=== PATIENT | female | born 1965 | race African-American/Black ===

== ENCOUNTER 2018-03-05 18:26 | Inpatient (IN) | payer OTHER ==
[~2018-03-05] VITALS: Ht 165.1 cm; Wt 103.0 kg
[2018-03-05 19:00] LABS: ABSOLUTE BASOPHIL COUNT 0 /CUMM (0.0-0.2); ABSOLUTE EOSINOPHIL COUNT 0.1 /CUMM (0.0-0.7); ABSOLUTE GRANULOCYTE CT 8.5 /CUMM (1.4-6.5); ABSOLUTE LYMPH COUNT 2.6 /CUMM (1.2-3.4); ABSOLUTE MONOCYTE COUNT 0.9 /CUMM (0.10-0.60); BASOPHIL % 0.3 % (0.0-2.0); GRANULOCYTE % 69.5 % (42.2-75.2); HEMATOCRIT 45.3 % (37-47); MEAN CORPUSCULAR HGB CONC 33.2 G/DL (33.0-37.0); MEAN CORPUSCULAR VOLUME 90.4 FL (81.0-99.0); MEAN PLATELET VOLUME 8.7 FL (7.4-10.4); PLATELET COUNT 417 /CUMM (130-400); RBC DISTRIBUTION WIDTH 13.1 % (11.5-14.5); RED BLOOD CELL CT 5.02 /CUMM (4.20-5.40); WHITE BLOOD CELL COUNT 12.2 /CUMM (4.8-10.8)
--- NOTE | 2018-03-05 19:38 | ED GENERAL ADULT ---
History of Present Illness General Chief Complaint: General Adult Stated Complaint: SIB DR FOR PER PT SUGAR LEVELS AROUND 700 Source: patient Exam Limitations: no limitations Vital Signs & Intake/Output Vital Signs & Intake/Output Vital Signs Date Time Temp Pulse Resp B/P B/P Pulse O2 O2 Flow FiO2 Mean Ox Delivery Rate 03/05 2204 98.8 80 18 106/69 99 Room Air 03/05 2059 99.0 80 18 126/79 99 Room Air 03/05 1853 99.2 108 16 134/91 97 Allergies Coded Allergies: No Known Allergies (03/05/18) Triage Note: PT CAME HOME FROM WORK AND DR. RIOJAS CALLED HER TO TELL HER THAT HER BLOODWORK CAME BACK AND THAT HER BS WAS OVER 700 AND SHE NEEDED TO COME TO THE ED. PT STATES SHE FEELS FINE. PT STATES SHE WAS NEVER DIOGNOSED DIABETIC SO THIS IS NEW FOR HER. PT DID NOTICE THAT SHE WAS VOIDING ALL THE TIME BUT THAT WAS IT. PT STATES SHE IS ALWAYS THIRSTY AND SHE CRAVES SWEETS BUT DOES NOT EAT THEM. Triage Nurses Notes Reviewed? yes Onset: Abrupt Duration: day(s): Timing: recent history HPI: 03/05/18 10 PM 52-year-old female presents to the emergency department for polyuria and polydipsia. She saw her primary care doctor who obtain some outpatient blood work and found her glucose to be greater than 700. She presented to the emergency department for further care. She denies any chest pain or shortness of breath. Past History Travel History Traveled to [place] past 21 day No Medical History Any Pertinent Medical History? see below for history Cardiovascular: hypertension Surgical History Surgical History: hysterectomy Psychosocial History What is your primary language Croatian Tobacco Use: Never used ETOH Use: occasional use Illicit Drug Use: denies illicit drug use Family History Hx Contributory? No Review of Systems Review of Systems Constitutional: Denies: fever. EENTM: Denies: visual changes. Respiratory: Denies: short of breath. Cardiovascular: Denies: chest pain. GI: Denies: abdominal pain. Genitourinary: Reports: see HPI. Musculoskeletal: Reports: muscle pain. Skin: Denies: rash. Neurological/Psychological: Reports: see HPI. Hematologic/Endocrine: Reports: polyuria, polydipsia. Immunologic/Allergic: Reports: no symptoms. Physical Exam Physical Exam General Appearance: well developed/nourished, alert, awake, anxious Head: atraumatic, normal appearance Eyes: Bilateral: normal appearance, PERRL, EOMI. Ears, Nose, Throat: normal pharynx, normal ENT inspection, hearing grossly normal Neck: normal inspection, supple Respiratory: normal breath sounds, chest non-tender, no respiratory distress Cardiovascular: regular rate/rhythm Peripheral Pulses: 4+ radial (R), 4+ radial (L) Gastrointestinal: non-tender Back: normal range of motion Extremities: normal range of motion Neurologic/Psych: no motor/sensory deficits, awake, alert, oriented x 3 Skin: intact, normal color Core Measures ACS in differential dx? No CVA/TIA Diagnosis: No Sepsis Present: No Sepsis Focused Exam Completed? No Progress Differential Diagnoses I considered the following diagnoses in my evaluation of the patient: [Diabetic ketoacidosis, hyperosmolar nonketotic coma] Plan of Care: Orders Procedure Date/time Status Consistent Carbohydrate 1 03/06 B Active LACTIC ACID 03/05 2144 Complete Patient Data 03/05 2110 Active BASIC METABOLIC PANEL 03/05 2100 Complete ED Holding Orders 03/05 2013 Active Admit to inpatient 03/05 2013 Active EKG 03/05 2013 Active Intake & Output 03/05 1956 Active FingerStick- Glucose 03/05 1844 Active LACTIC ACID 03/05 1844 Complete MIXED VENOUS BLOOD GAS (GEN) 03/05 1833 Active URINALYSIS 03/05 1833 Complete TROPONIN LEVEL 03/05 1833 Complete SERUM OSMOLALITY 03/05 1833 Complete COMPREHENSIVE METABOLIC PANEL 03/05 1833 Complete CBC WITHOUT DIFFERENTIAL 03/05 183 Complete ACETONE 03/05 183 Complete EKG 03/05 1833 Active Laboratory Tests 03/05/182131: Lactic Acid 1.6 03/05/182131: Anion Gap 13, Estimated GFR > 60, BUN/Creatinine Ratio 28.3 H, Glucose 404 H, Calcium 9.7 03/05/182053: Urine Color YEL, Urine Clarity CLEAR, Urine pH 6.0, Ur Specific [place] 1.020, Urine Protein NEG, Urine Ketones 40 H, Urine Nitrite NEG, Urine Bilirubin NEG, Urine Urobilinogen 0.2, Ur Leukocyte Esterase NEG, Ur Microscopic EXAM NOT REQUIRED, Urine Hemoglobin NEG, Urine Glucose >=1000 H 03/05/18 1850: Lactic Acid 1.8 03/05/18 185: Anion Gap 17 H, Estimated GFR > 60, BUN/Creatinine Ratio 25.7 H, Glucose 620 * H, Serum Osmolality 310 H, Calcium 11.3 H, Total Bilirubin 0.7, AST 21, ALT 43 , Alkaline Phosphatase 187 H, Troponin I < 0.01, Total Protein 7.9, Albumin 4.4 , Globulin 3.5, Albumin/Globulin Ratio 1.3, CBC w Diff NO MAN DIFF REQ, RBC 5.02 , MCV 90.4, MCH 30.0, MCHC 33.2, RDW 13.1, MPV 8.7, Gran % 69.5, Lymphocytes % 21.4, Monocytes % 7.8, Eosinophils % 1.0, Basophils % 0.3, Absolute Granulocytes 8.5 H, Absolute Lymphocytes 2.6, Absolute Monocytes 0.9 H, Absolute Eosinophils 0.1, Absolute Basophils 0, Acetone Level POSITIVE AT 1:2 DIL Initial ED EKG: NSR Departure Departure Disposition: STILL A PATIENT Condition: Stable Clinical Impression Primary Impression: DKA (diabetic ketoacidoses) Referrals: Clayton Roe MD (PCP/Family) Departure Forms: Customer Survey General Discharge Information Admission Note Spoke With: Ernestina Christianson MD Documentation of Exam: Documentation of any treatments & extenuating circumstances including Concerns Regarding Discharge (functional status, medication knowledge or non-compliance, living conditions, etc.) that warrant an admission rather than observation: [The patient needs admission for IV fluids, IV insulin, endocrinology consultation I discussed the patient's care with Dr. Canales who agrees with the plan of care] Critical Care Note Critical Care Note Critical Care Time: 30-74 min
[2018-03-05] MEDS ORDERED: BENICAR5 M1 PO (22:12)
[2018-03-05] MEDS ORDERED: ASPIRIN81 M4 PO (22:13)
[2018-03-05] MEDS ORDERED: VITAMIN B122500 MC2 PO (22:13)
[2018-03-05] MEDS ORDERED: VITAMIN D1000 UNIT PO (22:14)
[2018-03-05 22:50] VITALS: BP 130/80
--- NOTE | 2018-03-05 23:10 | History & Physical ---
Loni Mayfield 03/05/18 2310: General Information and HPI History of Present Illness: Ms. Lawton is a 52 yo f with a PMH significant for hypertension and borderline DM SIB PCP-Dr. Roe for a glucose lab results of 700. Patient reports yesterday she had her routine labs checked with an upcoming appointment with her PCP 04/10/18. For the past 2 weeks she has noticed she has had increased thirst, urinary frequency and cravings for sugar and soda. She normally does not drink soda and has had a poor appetite with a 18 pounds weight loss in 1 week. She has also noticed bilateral lower extremity intermittent cramps. She reports she drinks "alot" of "sugar-free"alcohol on her days off. Her last drink was Sunday. She denies blurry vision, nausea, vomiting, numbness, paresthesias or bowel symptoms. Allergies/Medications Allergies: Coded Allergies: No Known Allergies (03/05/18) Past History Travel History Traveled to [place] past 21 day No Medical History Cardiovascular: hypertension Surgical History Surgical History: hysterectomy Past Family/Social History Psychosocial History ETOH Use: occasional use Illicit Drug Use: denies illicit drug use Review of Systems Review of Systems Constitutional: Reports: see HPI. Exam & Diagnostic Data Last 24 Hrs of Vital Signs/I&O Vital Signs Date Time Temp Pulse Resp B/P B/P Pulse O2 O2 Flow FiO2 Mean Ox Delivery Rate 03/05 2250 98.0 91 20 130/80 97 Room Air 03/05 2204 98.8 80 18 106/69 99 Room Air 03/05 2059 99.0 80 18 126/79 99 Room Air 03/05 1853 99.2 108 16 134/91 97 Intake & Output 03/06 0800 03/06 0000 03/05 1600 Intake Total 1110 Output Total Balance 1110 Intake, IV 1110 Intake, Oral 0 Patient 228 lb Weight Weight Bed scale Measurement Method Physical Exam General Appearance Alert, Oriented X3, Cooperative, No Acute Distress HEENT Atraumatic, PERRLA, EOMI, Mucous Membr. moist/pink Neck Supple, No JVD Cardiovascular Regular Rate, Normal S1, Normal S2 Lungs Clear to Auscultation, Normal Air Movement Abdomen Normal Bowel Sounds, Soft, No Tenderness Extremities No Edema Last 24 Hrs of Labs/[place]: Laboratory Tests 03/05/182131: Lactic Acid 1.6 03/05/182131: Anion Gap 13, Estimated GFR > 60, BUN/Creatinine Ratio 28.3 H, Glucose 404 H, Calcium 9.7 03/05/182053: Urine Color YEL, Urine Clarity CLEAR, Urine pH 6.0, Ur Specific [place] 1.020, Urine Protein NEG, Urine Ketones 40 H, Urine Nitrite NEG, Urine Bilirubin NEG, Urine Urobilinogen 0.2, Ur Leukocyte Esterase NEG, Ur Microscopic EXAM NOT REQUIRED, Urine Hemoglobin NEG, Urine Glucose >=1000 H 03/05/181849: Lactic Acid 1.8 03/05/181849: Anion Gap 17 H, Estimated GFR > 60, BUN/Creatinine Ratio 25.7 H, Glucose 620 * H, Serum Osmolality 310 H, Calcium 11.3 H, Total Bilirubin 0.7, AST 21, ALT 43 , Alkaline Phosphatase 187 H, Troponin I < 0.01, Total Protein 7.9, Albumin 4.4 , Globulin 3.5, Albumin/Globulin Ratio 1.3, CBC w Diff NO MAN DIFF REQ, RBC 5.02 , MCV 90.4, MCH 30.0, MCHC 33.2, RDW 13.1, MPV 8.7, Gran % 69.5, Lymphocytes % 21.4, Monocytes % 7.8, Eosinophils % 1.0, Basophils % 0.3, Absolute Granulocytes 8.5 H, Absolute Lymphocytes 2.6, Absolute Monocytes 0.9 H, Absolute Eosinophils 0.1, Absolute Basophils 0, Acetone Level POSITIVE AT 1:2 DIL Diagnostic Data Other Results US DUPLEX LOWER EXTREMITY ARTERY/GRAFT LIMITED, RIGHT IMPRESSION: Monophasic waveforms in the distal popliteal artery, posterior tibial artery, anterior tibial artery, and dorsalis pedis in the right lower extremity consistent with peripheral arterial disease. Findings similar to previous study. XR FOOT, RIGHT IMPRESSION: Suggestion of a focus of soft tissue gas along the distal lateral aspect of the foot, with possible punctate foreign body densities in the plantar soft tissues. No acute osseous findings identified. 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 US TRIPLEX LOWER EXTREMITY, RIGHT IMPRESSION: Normal triplex scan without evidence of deep venous thrombosis involving the lower extremity. Assessment/Plan Assessment: Ms. Lawton is a 52 yo f with a PMH significant for hypertension and borderline DM SIB PCP-Dr. Roe for a glucose lab results of 700. On admission her glucose was 620 with an anion gap of 17 that quickly resolved and was given 5 units insulin, IVF, 10 meQ potassium Problem list: Newly diagnosed DM with hyperglycemia Hyponatremia most likely secondary to hyperglycemia Plan: Admit to general med for further evaluation and management NS IVF Accu-Cheks and NovoLog sliding scale Levemir 15 units twice a day Hemoglobin A1c TSH/T4 Endo consult Diet: Diabetic DVT ppx: Enoxaparin Code: Full As Ranked By This Provider Problem List: 1. Hyperglycemia Core Measures/Misc (08/12) Acute Coronary Syndrome ACS Diagnosis: No Congestive Heart Failure Congestive Heart Failure Diagnosis No Cerebrovascular Accident CVA/TIA Diagnosis: No VTE (View Protocol) VTE Risk Factors Age>40 No Mechanical VTE Prophylaxis d/t N/A MechProphylax Ordered No VTE Pharm Prophylaxis d/t NA PharmProphylax ordered Sepsis (View protocol) Sepsis Present: No DrewjoselynKartik 03/06/18 0505: General Information and HPI Allergies/Medications Home Med list Aspirin (Aspirin*) 81 MG TAB.CHEW 81 MG PO DAILY HEART HEALTH (Reported) Cholecalciferol (Vitamin D3) (Vitamin D) 1,000 UNIT TABLET (Unknown Dose) PO DAILY SUPPLEMENT (Reported) Cyanocobalamin (Vitamin B-12) (Vitamin B12) 2,500 MCG TAB.CHEW (Unknown Dose) PO DAILY SUPPPLEMENT (Reported) Olmesartan/Hydrochlorothiazide (Benicar Hct 40-12.5 MG Tablet) 40 MG-12.5 MG TABLET 1 TAB PO DAILY htn (Reported) Resident Review Statement Resident Statement: examined this patient, discussed with internal wholesaler Other Findings: 52 year old woman with a PMH significant for hypertension was sent by her PCP- Dr. Roe for for evaluation of elevated serum glucose of 700. She endorses few weeks history of polyuria polydipsia and intermittent lower extremity cramping. She also 18 pound unintentional weight loss over. Denies fever, chills, chest pain, nausea vomiting, abdominal pain dysuria, bowel symptoms. Vitals temperature 99.0, heart rate 80, respiratory rate 18, blood pressure 126/ 79, 91% on room air. Exam as above Labs significant for mild leukocytosis, sodium 131, chloride 95, bicarbonate 26, anion gap 17 trended down to 13 potassium 3.9, glucose 620 Assessment: Hyperglycemia likely new onset diabetes mellitus Plan Admit to general medicine floor, vital per protocol Spoke to shipping weigher [employer] consultant Dr. sweeney, please patient on every 4 Accu-Cheks with recommended insulin sliding scale. Will start long-acting Levemir 15 units twice a day Home medication of Benicar will be converted losartan 100 mg daily and hydrochlorothiazide 12.5 daily Continue aspirin Follow-up proinsulin,OLIVIA and C-peptide diabetic diet dvt ppx with sc lovenox full code Ernestina Christianson 03/06/18 0544: Attending MD Review Statement Attending Statement Attending MD Statement: examined this patient, discuss w/resident/PA/GUITAR TEACHER, agreed w/resident/PA/GUITAR TEACHER, reviewed EMR data (avail), reviewed images, amended to note Attending Assessment/Plan: CC: High blood sugar PMH: Hypertension, ? Borderline diabetes Patient was suggested to go to ER by her primary care physician for elevated blood sugar. Patient had routine blood work yesterday and she got a call back from her primary care physician today stating that her blood sugar was more than 700. And she was suggested to go to ER. This was routine blood work, before this patient had blood work approximately 6 months back, at that time she was told that she is borderline diabetes but no diet changes or medications were prescribed. Last 2-3 weeks she has been noticing increased thirst and increased urination, lost 18 pounds in one week, unintentional. Denies any fever, chills, urinary burning, cough, expectoration, abdominal pain, diarrhea, otherwise complete ROS unremarkable Vitals: Tmax 99.2, pulse 108, RR 16, blood pressure 134/91, saturating 97% on room air On exam: A O 3, cooperative, obese, no acute distress, neck supple, JVD normal, no lymphadenopathy, mucosa dry, no focal neurological deficit, no dependent edema, no obvious skin rashes or inflammation CVS: S1-S2, RRR. RS: Clear to auscultate bilaterally. Abdomen: Soft, NT, ND, bowel sounds present. Assessment and plan 52-year-old female with past medical history significant for hypertension came to ER for elevated blood sugar. Her blood sugar yesterday was 700 and today and BMP was 620. She had mildly elevated anion gap of 17 But normal according to our albumin. She has acetone positive in urine. Hypercalcemic 11.3 on arrival but improved after hydration. Physical exam unremarkable. Patient appears to have newly diagnosed diabetes with hyperglycemia. Endocrine was called from ER. Patient may have borderline DKA or on the verge of DKA but repeat BMP after hydration and IV insulin showed anion gap of 12 and blood sugar of 404. Patient has leukocytosis of unclear etiology, no source of infection identified. + Newly diagnosed diabetes with hyperglycemia + Pseudohyponatremia + Leukocytosis + History of hypertension - Admit to general medicine - Continue Levemir 10 units tonight, and 15 units twice a day from tomorrow - Continue short-acting insulin as suggested by shipping weigher - Continue gentle hydration with normal saline - Accu-Cheks every 4 hours - Endocrine consult - Check BEP and CBC in a.m. - Continue her home antihypertensives - Check HbA1c, check fasting lipid panel - DVT prophylaxis
--- NOTE | 2018-03-06 05:45 | Admission Certification ---
Admission Certification Certification Statement - As attending physician, I certify that at the time of - admission, based on clinical presentation, severity of - symptoms, need for further diagnostic testing and - therapeutic interventions, and risk of adverse outcomes - without in-hospital treatment, in my clinical assessment, - this patient requires an acute hospital stay for a minimum - of two nights or longer. I have also considered psychsocial - factors such as support system, advanced age, financial - issues, cognitive issues, and failed out-patient treatments, - past re-admission history, safety of patient, and lack of - compliance as applicable. Specific rationale supporting this admission is: Newly diagnosed diabetes with significant hyperglycemia
[2018-03-06] MEDS ORDERED: BENICAR HCT 401 EACH PO (05:50)
[2018-03-06 06:51] VITALS: BP 120/86
[2018-03-06 08:44] LABS: ABSOLUTE EOSINOPHIL COUNT 0.1 /CUMM (0.0-0.7); ABSOLUTE LYMPH COUNT 3.1 /CUMM (1.2-3.4); ABSOLUTE MONOCYTE COUNT 0.7 /CUMM (0.10-0.60); MEAN PLATELET VOLUME 8.9 FL (7.4-10.4)
[2018-03-06 08:58] LABS: ABSOLUTE BASOPHIL COUNT 0.1 /CUMM (0.0-0.2); ABSOLUTE GRANULOCYTE CT 4.9 /CUMM (1.4-6.5); BASOPHIL % 0.6 % (0.0-2.0); EOSINOPHIL % 1.5 % (0-5); GRANULOCYTE % 55.4 % (42.2-75.2); MEAN CORPUSCULAR HGB 30.9 PG (27.0-31.0); MEAN CORPUSCULAR HGB CONC 34.2 G/DL (33.0-37.0); MEAN CORPUSCULAR VOLUME 90.3 FL (81.0-99.0); PLATELET COUNT 342 /CUMM (130-400); RBC DISTRIBUTION WIDTH 12.7 % (11.5-14.5); RED BLOOD CELL CT 4.28 /CUMM (4.20-5.40); WHITE BLOOD CELL COUNT 8.9 /CUMM (4.8-10.8)
[2018-03-06 09:12] LABS: HEMATOCRIT 38.6 % (37-47)
--- NOTE | 2018-03-06 09:28 | PN- Housestaff ---
Alfredo CASTANON,[facility] 03/06/18 0928: Subjective Follow-up For: HHS Subjective: No acute events overnight. Patient states she has felt better. Patient did have some nausea this afternoon which improved with Zofran. Review of Systems Constitutional: Reports: see HPI. Objective Last 24 Hrs of Vital Signs/I&O Vital Signs Date Time Temp Pulse Resp B/P B/P Pulse O2 O2 Flow FiO2 Mean Ox Delivery Rate 03/06 1420 98.4 91 18 114/70 95 Room Air 03/06 1040 74 130/60 03/06 0651 98.0 74 20 120/86 96 Room Air 03/05 2250 98.0 91 20 130/80 97 Room Air 03/05 2204 98.8 80 18 106/69 99 Room Air 03/05 2059 99.0 80 18 126/79 99 Room Air 03/05 1853 99.2 108 16 134/91 97 Intake & Output 03/06 1600 03/06 0800 03/06 0000 Intake Total 995 478 2917 Output Total Balance 969 016 2575 Intake, IV 10 1110 Intake, Oral 800 600 0 Patient 228 lb Weight Weight Bed scale Measurement Method Physical Exam General Appearance: Alert, Oriented X3, Cooperative, No Acute Distress, Obese Cardiovascular: Regular Rate, Normal S1, Normal S2 Lungs: Clear to Auscultation, Normal Air Movement Abdomen: Normal Bowel Sounds, Soft, No Tenderness Extremities: 2+ radial pulses Current Medications: Current Medications Sig/Shalini Start time Last Medication Dose Route Stop Time Status Admin Aspirin 81 MG DAILY 03/06 1000 AC 03/06 PO 1039 Enoxaparin Sodium 40 MG DAILY 03/06 1000 AC 03/06 SC 1041 Hydrochlorothiazide 12.5 MG DAILY 03/06 1000 AC 03/06 PO 1039 Insulin Aspart 0 AC & AT BEDTIME 03/06 0845 03/06 IA 1312 Insulin Aspart 0 Q4 03/06 0200 DC 03/06 SC 0618 Insulin Detemir 15 UNITS BID 03/06 1000 AC 03/06 SC 1041 Insulin Detemir 10 UNITS BID 03/05 2325 DC 03/05 IA 03/07 0100 2340 Insulin Human Regular 5 UNITS ONCE ONE 03/05 2015 DC 03/05 IV 03/05 Losartan Potassium 100 MG DAILY 03/06 1000 AC 03/06 PO 1040 Metformin HCl 1,000 MG 0800,1700 03/06 0845 AC 03/06 PO 1131 Ondansetron HCl 4 MG ONCE ONE 03/06 1415 DC IV 03/06 1416 Potassium Chloride 40 MEQ BID 03/06 1515 AC PO 03/06 2201 Potassium Chloride 10 MEQ ONCE ONE 03/05 2015 DC 03/05 IV 03/05 Sodium Chloride 1,000 ML BOLUS ONE 03/05 2015 DC 03/05 IV 03/05 Sodium Chloride 1,000 ML BOLUS ONE 03/05 190 DC 03/05 IV 03/05 Last 24 Hrs of Lab/Preston Results Last 24 Hrs of Labs/Mics: Laboratory Tests 03/06/18 0715: Proinsulin Pending, C-Peptide Pending 03/06/1815: Anion Gap 12, Estimated GFR > 60, BUN/Creatinine Ratio 28.0 H, Hemoglobin A1c 10.5 H, Triglycerides 275 H, Cholesterol 154, LDL Cholesterol, Calc 66, HDL Cholesterol 33 L, Cholesterol/HDL Ratio 5 H, TSH 2.300, Thyroxine (T4) 7.9, CBC w Diff NO MAN DIFF REQ, RBC 4.28, MCV 90.3, MCH 30.9, MCHC 34.2, RDW 12.7, MPV 8.9, Gran % 55.4, Lymphocytes % 34.7, Monocytes % 7.8, Eosinophils % 1.5, Basophils % 0.6, Absolute Granulocytes 4.9, Absolute Lymphocytes 3.1, Absolute Monocytes 0.7 H, Absolute Eosinophils 0.1, Absolute Basophils 0.1, OLIVIA Antibody Pending 03/05/182131: Lactic Acid 1.6 03/05/182131: Anion Gap 13, Estimated GFR > 60, BUN/Creatinine Ratio 28.3 H, Glucose 404 H, Calcium 9.7 03/05/182053: Urine Color YEL, Urine Clarity CLEAR, Urine pH 6.0, Ur Specific [place] 1.020, Urine Protein NEG, Urine Ketones 40 H, Urine Nitrite NEG, Urine Bilirubin NEG, Urine Urobilinogen 0.2, Ur Leukocyte Esterase NEG, Ur Microscopic EXAM NOT REQUIRED, Urine Hemoglobin NEG, Urine Glucose >=1000 H 03/05/181849: Lactic Acid 1.8 03/05/181849: Anion Gap 17 H, Estimated GFR > 60, BUN/Creatinine Ratio 25.7 H, Glucose 620 * H, Serum Osmolality 310 H, Calcium 11.3 H, Total Bilirubin 0.7, AST 21, ALT 43 , Alkaline Phosphatase 187 H, Troponin I < 0.01, Total Protein 7.9, Albumin 4.4 , Globulin 3.5, Albumin/Globulin Ratio 1.3, CBC w Diff NO MAN DIFF REQ, RBC 5.02 , MCV 90.4, MCH 30.0, MCHC 33.2, RDW 13.1, MPV 8.7, Gran % 69.5, Lymphocytes % 21.4, Monocytes % 7.8, Eosinophils % 1.0, Basophils % 0.3, Absolute Granulocytes 8.5 H, Absolute Lymphocytes 2.6, Absolute Monocytes 0.9 H, Absolute Eosinophils 0.1, Absolute Basophils 0, Acetone Level POSITIVE AT 1:2 DIL Assessment/Plan Assessment: Ms. Lawton is a 52 yo f with a PMH significant for hypertension and borderline DM SIB PCP-Dr. Roe for a glucose lab results of 700. Problem list: #HHS Admission glucose 620 with an anion gap of 17. Quickly resolved after 5 units insulin, IVF, 10 meQ potassium Hemoglobin A1c 10.5 Normal TSH/T4 Lipid panel: Triglycerides 275, cholesterol 154, LDL 66, HDL 33 -cont endo recs -cont metformin, NovoLog, Levemir -Follow-up: Stone, C-peptide levels -follow-up nutrition consult for diabetic diet teaching -Monitor electrolytes, replinish if needed Diet: Diabetic DVT ppx: Enoxaparin Code: Full Problem List: 1. Hyperglycemia Pain Ratin Pain Location: 0 Pain Goal: Pain 4 or less Pain Plan: pain pathway Tomorrow's Labs & Rationales: rolo Cruz MD,[place] 03/06/18 1121: Attending MD Review Statement Attending Statement Attending MD Statement: examined this patient, discuss w/resident/PA/NARROW GAUGE ENGINEER, agreed w/resident/PA/NARROW GAUGE ENGINEER, reviewed EMR data (avail), discussed with nursing, discussed with case mgmt, reviewed images, amended to note Attending Assessment/Plan: Patient seen and examined, denies any complaints. Patient is admitted with hyperglycemia and positive ketones. Vital Signs Date Time Temp Pulse Resp B/P B/P Pulse O2 O2 Flow FiO2 Mean Ox Delivery Rate 03/06 1040 74 130/60 03/06 0651 98.0 74 20 120/86 96 Room Air 03/05 2250 98.0 91 20 130/80 97 Room Air 03/05 2204 98.8 80 18 106/69 99 Room Air 03/05 2059 99.0 80 18 126/79 99 Room Air 03/05 1853 99.2 108 16 134/91 97 on exam; aox3, nad. cv; s1,s2, rrr resp; clear abd; soft, nt, bs+ ext; no edema Laboratory Tests 03/06 03/06 03/05 0715 0715 2132 Chemistry Sodium (137 - 145 mmol/L) 135 L Potassium (3.5 - 5.1 mmol/L) 3.2 L Chloride (98 - 107 mmol/L) 97 L Carbon Dioxide (22 - 30 mmol/L) 26 Anion Gap (5 - 16) 12 BUN (7 - 17 mg/dL) 14 Creatinine (0.5 - 1.0 mg/dL) 0.5 Estimated GFR (>60 ml/min) > 60 BUN/Creatinine Ratio (7 - 25 %) 28.0 H Hemoglobin A1c (4.2 - 5.8 %) 10.5 H Proinsulin Pending C-Peptide Pending Lactic Acid (0.7 - 2.1 mmol/L) 1.6 Triglycerides (<150 mg/dL) 275 H Cholesterol (<200 MG/DL) 154 LDL Cholesterol, Calc (65 - 129 mg/dL) 66 HDL Cholesterol (40 - 60 mg/dL) 33 L Cholesterol/HDL Ratio (0.00 - 4.23 %) 5 H TSH (0.270 - 4.200 uIU/mL) 2.300 Thyroxine (T4) (4.5 - 10.9 ug/dL) 7.9 Hematology CBC w Diff NO MAN DIFF REQ WBC (4.8 - 10.8 /CUMM) 8.9 RBC (4.20 - 5.40 /CUMM) 4.28 Hgb (12.0 - 16.0 G/DL) 13.2 Hct (37 - 47 %) 38.6 MCV (81.0 - 99.0 FL) 90.3 MCH (27.0 - 31.0 PG) 30.9 MCHC (33.0 - 37.0 G/DL) 34.2 RDW (11.5 - 14.5 %) 12.7 Plt Count (130 - 400 /CUMM) 342 MPV (7.4 - 10.4 FL) 8.9 Gran % (42.2 - 75.2 %) 55.4 Lymphocytes % (20.5 - 51.1 %) 34.7 Monocytes % (1.7 - 9.3 %) 7.8 Eosinophils % (0 - 5 %) 1.5 Basophils % (0.0 - 2.0 %) 0.6 Absolute Granulocytes (1.4 - 6.5 /CUMM) 4.9 Absolute Lymphocytes (1.2 - 3.4 /CUMM) 3.1 Absolute Monocytes (0.10 - 0.60 /CUMM) 0.7 H Absolute Eosinophils (0.0 - 0.7 /CUMM) 0.1 Absolute Basophils (0.0 - 0.2 /CUMM) 0.1 Immunology OLIVIA Antibody Pending 03/05 185 Chemistry Sodium (137 - 145 mmol/L) 135 L Potassium (3.5 - 5.1 mmol/L) 4.0 Chloride (98 - 107 mmol/L) 95 L Carbon Dioxide (22 - 30 mmol/L) 26 Anion Gap (5 - 16) 13 BUN (7 - 17 mg/dL) 17 Creatinine (0.5 - 1.0 mg/dL) 0.6 Estimated GFR (>60 ml/min) > 60 BUN/Creatinine Ratio (7 - 25 %) 28.3 H Glucose (65 - 99 mg/dL) 404 H Lactic Acid (0.7 - 2.1 mmol/L) 1.8 Calcium (8.4 - 10.2 mg/dL) 9.7 Urines Urine Color (YEL,AMB,STR) YEL Urine Clarity (CLEAR) CLEAR Urine pH (5.0 - 8.0) 6.0 Ur Specific [place] (1.001 - 1.035) 1.020 Urine Protein (NEG,<30 MG/DL) NEG Urine Ketones (NEG) 40 H Urine Nitrite (NEG) NEG Urine Bilirubin (NEG) NEG Urine Urobilinogen (0.1 - 1.0 EU/dl) 0.2 Ur Leukocyte Esterase (NEG) NEG Ur Microscopic EXAM NOT REQUIRED Urine Hemoglobin (NEG) NEG Urine Glucose (N MG/DL) >=1000 H 03/05 1850 Chemistry Sodium (137 - 145 mmol/L) 131 L Potassium (3.5 - 5.1 mmol/L) 3.9 Chloride (98 - 107 mmol/L) 91 L Carbon Dioxide (22 - 30 mmol/L) 23 Anion Gap (5 - 16) 17 H BUN (7 - 17 mg/dL) 18 H Creatinine (0.5 - 1.0 mg/dL) 0.7 Estimated GFR (>60 ml/min) > 60 BUN/Creatinine Ratio (7 - 25 %) 25.7 H Glucose (65 - 99 mg/dL) 620 *H Serum Osmolality (285 - 295 MOSM/KG) 310 H Calcium (8.4 - 10.2 mg/dL) 11.3 H Total Bilirubin (0.2 - 1.3 mg/dL) 0.7 AST (14 - 36 U/L) 21 ALT (9 - 52 U/L) 43 Alkaline Phosphatase (<127 U/L) 187 H Troponin I (< 0.11 ng/ml) < 0.01 Total Protein (6.3 - 8.2 g/dL) 7.9 Albumin (3.5 - 5.0 g/dL) 4.4 Globulin (1.9 - 4.2 gm/dL) 3.5 Albumin/Globulin Ratio (1.1 - 2.2 %) 1.3 Hematology CBC w Diff NO MAN DIFF REQ WBC (4.8 - 10.8 /CUMM) 12.2 H RBC (4.20 - 5.40 /CUMM) 5.02 Hgb (12.0 - 16.0 G/DL) 15.1 Hct (37 - 47 %) 45.3 MCV (81.0 - 99.0 FL) 90.4 MCH (27.0 - 31.0 PG) 30.0 MCHC (33.0 - 37.0 G/DL) 33.2 RDW (11.5 - 14.5 %) 13.1 Plt Count (130 - 400 /CUMM) 417 H MPV (7.4 - 10.4 FL) 8.7 Gran % (42.2 - 75.2 %) 69.5 Lymphocytes % (20.5 - 51.1 %) 21.4 Monocytes % (1.7 - 9.3 %) 7.8 Eosinophils % (0 - 5 %) 1.0 Basophils % (0.0 - 2.0 %) 0.3 Absolute Granulocytes (1.4 - 6.5 /CUMM) 8.5 H Absolute Lymphocytes (1.2 - 3.4 /CUMM) 2.6 Absolute Monocytes (0.10 - 0.60 /CUMM) 0.9 H Absolute Eosinophils (0.0 - 0.7 /CUMM) 0.1 Absolute Basophils (0.0 - 0.2 /CUMM) 0 Toxicology Acetone Level (NEGATIVE) POSITIVE AT 1:2 DIL A/P: 52-year-old female with past medical history significant for hypertension, admitted with hyperglycemia and positive ketones. Hemoglobin A1c is more than 10. Patient currently on Levemir and sliding scale insulin. OLIVIA antibody is pending. Endocrinology consult has been called and pending. Patient will require diabetic teaching, insulin teaching, glucometer and nutrition consult. DVt px; Lovenox.
--- NOTE | 2018-03-06 11:49 | Cons- Endocrinology ---
General Information and HPI Consulting Request Date of Consult: 03/06/18 Requested By: medical team Reason for Consult: management of HHS and newly diagnosed diabetes type 2. Source of Information: patient Exam Limitations: no limitations History of Present Illness: 52 y.o female with a strong family hx of diabetes, was refered to ER by her PMD for abnormal glucose level. She has had prediabetes for years. Over the past two weeks, she has had polyuria and polydipsia. In ER, her glucose level was 620 along with AG 17, bicarb 23 and osmolality 310, consistent with HHS. She received IVF and insulin sc in ER. Overnight, she was put on Levemir 15 units twice a day and Novolog coverage every 4 hours. Her glucose levels were 445, 469 and 280. Allergies/Medications Allergies: Coded Allergies: No Known Allergies (03/05/18) Home Med List: Aspirin (Aspirin*) 81 MG TAB.CHEW 81 MG PO DAILY HEART HEALTH (Reported) Cholecalciferol (Vitamin D3) (Vitamin D) 1,000 UNIT TABLET (Unknown Dose) PO DAILY SUPPLEMENT (Reported) Cyanocobalamin (Vitamin B-12) (Vitamin B12) 2,500 MCG TAB.CHEW (Unknown Dose) PO DAILY SUPPPLEMENT (Reported) Olmesartan/Hydrochlorothiazide (Benicar Hct 40-12.5 MG Tablet) 40 MG-12.5 MG TABLET 1 TAB PO DAILY htn (Reported) Review of Systems Review of Systems Constitutional: Reports: see HPI. Cardiovascular: Denies: chest pain. Respiratory: Denies: short of breath. GI: Denies: abdominal pain. Genitourinary: Reports: frequency. Hematologic/Endocrine: Reports: polyuria, polydipsia. Past History Travel History Traveled to [place] past 21 day No Medical History Blood Transfusion Hx: No Cardiovascular: hypertension INFECTION PREVENTIONIST/Reproductive: hysterectomy 2017 Surgical History Surgical History: hysterectomy Psychosocial History Smoking Status: Never Smoked ETOH Use: occasional use Illicit Drug Use: denies illicit drug use Exam & Diagnostic Data Last 24 Hrs of Vital Signs/I&O Vital Signs Date Time Temp Pulse Resp B/P B/P Pulse O2 O2 Flow FiO2 Mean Ox Delivery Rate 03/06 1040 74 130/60 03/06 0651 98.0 74 20 120/86 96 Room Air 03/05 2250 98.0 91 20 130/80 97 Room Air 03/05 2204 98.8 80 18 106/69 99 Room Air 03/05 2059 99.0 80 18 126/79 99 Room Air 03/05 1853 99.2 108 16 134/91 97 Intake & Output 03/06 1600 03/06 0800 03/06 0000 Intake Total 610 1110 Output Total Balance 610 1110 Intake, IV 10 1110 Intake, Oral 600 0 Patient 228 lb Weight Weight Bed scale Measurement Method Physical Exam General Appearance: no apparent distress Neck: normal inspection Respiratory: lungs clear Cardiovascular: regular rate/rhythm Gastrointestinal: soft, non-tender Extremities: no edema Labs/Preston Results: Laboratory Tests 03/06 03/06 03/05 0715 0715 2132 Chemistry Sodium (137 - 145 mmol/L) 135 L Potassium (3.5 - 5.1 mmol/L) 3.2 L Chloride (98 - 107 mmol/L) 97 L Carbon Dioxide (22 - 30 mmol/L) 26 Anion Gap (5 - 16) 12 BUN (7 - 17 mg/dL) 14 Creatinine (0.5 - 1.0 mg/dL) 0.5 Estimated GFR (>60 ml/min) > 60 BUN/Creatinine Ratio (7 - 25 %) 28.0 H Hemoglobin A1c (4.2 - 5.8 %) 10.5 H Proinsulin Pending C-Peptide Pending Lactic Acid (0.7 - 2.1 mmol/L) 1.6 Triglycerides (<150 mg/dL) 275 H Cholesterol (<200 MG/DL) 154 LDL Cholesterol, Calc (65 - 129 mg/dL) 66 HDL Cholesterol (40 - 60 mg/dL) 33 L Cholesterol/HDL Ratio (0.00 - 4.23 %) 5 H TSH (0.270 - 4.200 uIU/mL) 2.300 Thyroxine (T4) (4.5 - 10.9 ug/dL) 7.9 Hematology CBC w Diff NO MAN DIFF REQ WBC (4.8 - 10.8 /CUMM) 8.9 RBC (4.20 - 5.40 /CUMM) 4.28 Hgb (12.0 - 16.0 G/DL) 13.2 Hct (37 - 47 %) 38.6 MCV (81.0 - 99.0 FL) 90.3 MCH (27.0 - 31.0 PG) 30.9 MCHC (33.0 - 37.0 G/DL) 34.2 RDW (11.5 - 14.5 %) 12.7 Plt Count (130 - 400 /CUMM) 342 MPV (7.4 - 10.4 FL) 8.9 Gran % (42.2 - 75.2 %) 55.4 Lymphocytes % (20.5 - 51.1 %) 34.7 Monocytes % (1.7 - 9.3 %) 7.8 Eosinophils % (0 - 5 %) 1.5 Basophils % (0.0 - 2.0 %) 0.6 Absolute Granulocytes (1.4 - 6.5 /CUMM) 4.9 Absolute Lymphocytes (1.2 - 3.4 /CUMM) 3.1 Absolute Monocytes (0.10 - 0.60 /CUMM) 0.7 H Absolute Eosinophils (0.0 - 0.7 /CUMM) 0.1 Absolute Basophils (0.0 - 0.2 /CUMM) 0.1 Immunology OLIVIA Antibody Pending 03/052 4 1850 Chemistry Sodium (137 - 145 mmol/L) 135 L Potassium (3.5 - 5.1 mmol/L) 4.0 Chloride (98 - 107 mmol/L) 95 L Carbon Dioxide (22 - 30 mmol/L) 26 Anion Gap (5 - 16) 13 BUN (7 - 17 mg/dL) 17 Creatinine (0.5 - 1.0 mg/dL) 0.6 Estimated GFR (>60 ml/min) > 60 BUN/Creatinine Ratio (7 - 25 %) 28.3 H Glucose (65 - 99 mg/dL) 404 H Lactic Acid (0.7 - 2.1 mmol/L) 1.8 Calcium (8.4 - 10.2 mg/dL) 9.7 Urines Urine Color (YEL,AMB,STR) YEL Urine Clarity (CLEAR) CLEAR Urine pH (5.0 - 8.0) 6.0 Ur Specific [place] (1.001 - 1.035) 1.020 Urine Protein (NEG,<30 MG/DL) NEG Urine Ketones (NEG) 40 H Urine Nitrite (NEG) NEG Urine Bilirubin (NEG) NEG Urine Urobilinogen (0.1 - 1.0 EU/dl) 0.2 Ur Leukocyte Esterase (NEG) NEG Ur Microscopic EXAM NOT REQUIRED Urine Hemoglobin (NEG) NEG Urine Glucose (N MG/DL) >=1000 H 03/05 1850 Chemistry Sodium (137 - 145 mmol/L) 131 L Potassium (3.5 - 5.1 mmol/L) 3.9 Chloride (98 - 107 mmol/L) 91 L Carbon Dioxide (22 - 30 mmol/L) 23 Anion Gap (5 - 16) 17 H BUN (7 - 17 mg/dL) 18 H Creatinine (0.5 - 1.0 mg/dL) 0.7 Estimated GFR (>60 ml/min) > 60 BUN/Creatinine Ratio (7 - 25 %) 25.7 H Glucose (65 - 99 mg/dL) 620 *H Serum Osmolality (285 - 295 MOSM/KG) 310 H Calcium (8.4 - 10.2 mg/dL) 11.3 H Total Bilirubin (0.2 - 1.3 mg/dL) 0.7 AST (14 - 36 U/L) 21 ALT (9 - 52 U/L) 43 Alkaline Phosphatase (<127 U/L) 187 H Troponin I (< 0.11 ng/ml) < 0.01 Total Protein (6.3 - 8.2 g/dL) 7.9 Albumin (3.5 - 5.0 g/dL) 4.4 Globulin (1.9 - 4.2 gm/dL) 3.5 Albumin/Globulin Ratio (1.1 - 2.2 %) 1.3 Hematology CBC w Diff NO MAN DIFF REQ WBC (4.8 - 10.8 /CUMM) 12.2 H RBC (4.20 - 5.40 /CUMM) 5.02 Hgb (12.0 - 16.0 G/DL) 15.1 Hct (37 - 47 %) 45.3 MCV (81.0 - 99.0 FL) 90.4 MCH (27.0 - 31.0 PG) 30.0 MCHC (33.0 - 37.0 G/DL) 33.2 RDW (11.5 - 14.5 %) 13.1 Plt Count (130 - 400 /CUMM) 417 H MPV (7.4 - 10.4 FL) 8.7 Gran % (42.2 - 75.2 %) 69.5 Lymphocytes % (20.5 - 51.1 %) 21.4 Monocytes % (1.7 - 9.3 %) 7.8 Eosinophils % (0 - 5 %) 1.0 Basophils % (0.0 - 2.0 %) 0.3 Absolute Granulocytes (1.4 - 6.5 /CUMM) 8.5 H Absolute Lymphocytes (1.2 - 3.4 /CUMM) 2.6 Absolute Monocytes (0.10 - 0.60 /CUMM) 0.9 H Absolute Eosinophils (0.0 - 0.7 /CUMM) 0.1 Absolute Basophils (0.0 - 0.2 /CUMM) 0 Toxicology Acetone Level (NEGATIVE) POSITIVE AT 1:2 DIL Assessment/Plan Assessment/Plan 52 y.o female with a strong family hx of diabetes, has had prediabetes for years , presented to ER with glucose level of above 600 with HbA1c of 10.5%. She was admiited for HHS. Clinically she has been improving. Management: 1. DM education/ glucometer teaching/ nutrition consult; 2. continue Levemir 15 units twice a day; 3. start metformin 1000 mg twice a day with breakfast and with dinner; 4. stop Novolog coverage every 4 hours; 5. start Novolog coverage before meals and novolog coverage at bedtime; detail see the inpatient DM orders; 6. monitor FSGs. will follow. Inpatient Diabetes Orders Every 4 Hours: Bolus Insulin: Novolog < 80 mg/dl: no coverage 80-100 mg/dl: no coverage 101-120 mg/dl: no coverage 121-150 mg/dl: no coverage 151-200 mg/dl: no coverage 201-250 mg/dl: 2 units 251-300 mg/dl: 4 units 301-350 mg/dl: 6 units 351-400 mg/dl: 8 units > 400 mg/dl: 10 units Every 6 Hours: Bolus Insulin: Novolog < 80 mg/dl: no coverage 80-100 mg/dl: no coverage 101-120 mg/dl: no coverage 121-150 mg/dl: no coverage 151-200 mg/dl: no coverage 201-250 mg/dl: no coverage 251-300 mg/dl: 2 units 301-350 mg/dl: 3 units 351-400 mg/dl: 4 units > 400 mg/dl: 5 units Consult Acknowledgment - Thank you for your consult request.
[2018-03-06 14:20] VITALS: BP 114/70
[2018-03-06 22:36] VITALS: BP 128/84
[2018-03-07 06:27] VITALS: BP 118/80
--- NOTE | 2018-03-07 10:44 | PN- Diabetes ---
Assessment/Plan Diabetes Assessment: 52 y.o female with a strong family hx of diabetes, has had prediabetes for years , presented to ER with glucose level of above 600 with HbA1c of 10.5%. She was admiited for HHS. Clinically she has been improving. She was put on Levemir 15 units twice a day, metformin 1000 mg twice a day and Novolog coverage before meals as a back up when her FSG is > 200. Her FSGs were 353, 276 and 182. She had loose BM x 3 times after she was put on metformin. Plan: Most likely she is going home today. The discharge plan for DM: ---as she received Levemir 15 units in the morning in hospital, she will receive Levemir 10 units tonight. ---starting tomorrow, she will be on Levemir 20 units daily in the morning; ---metformin ER 500 mg x 2 tablets twice a day with breakfast and with dinner; ---monitor FSGs x 3 times a day; ---encourage diet control and exercises; ---f/u in office after discharge. Subjective Subjective: she feels better. Objective Last 24 Hrs of Vital Signs/I&O Vital Signs Date Time Temp Pulse Resp B/P B/P Pulse O2 O2 Flow FiO2 Mean Ox Delivery Rate 03/07 0827 118/80 03/07 0627 97.4 72 18 118/80 96 Room Air 03/06 2236 98.0 92 18 128/84 96 Room Air 03/06 1420 98.4 91 18 114/70 95 Room Air Intake & Output 03/07 1600 03/07 0800 03/07 0000 Intake Total 200 200 Output Total Balance 200 200 Intake, Oral 200 200 Patient 227 lb Weight Findings Pertinent Lab/Preston Results: Laboratory Tests 03/07 0753 Chemistry Sodium (137 - 145 mmol/L) 134 L Potassium (3.5 - 5.1 mmol/L) 3.9 Chloride (98 - 107 mmol/L) 98 Carbon Dioxide (22 - 30 mmol/L) 26 Anion Gap (5 - 16) 10 BUN (7 - 17 mg/dL) 12 Creatinine (0.5 - 1.0 mg/dL) 0.5 Estimated GFR (>60 ml/min) > 60 BUN/Creatinine Ratio (7 - 25 %) 24.0
--- NOTE | 2018-03-07 10:57 | PN- Housestaff ---
Subjective Follow-up For: HHS Diabetes Subjective: No acute events overnight. Asking to be discharged without needle insulin. Review of Systems Constitutional: Reports: see HPI. Objective Last 24 Hrs of Vital Signs/I&O Vital Signs Date Time Temp Pulse Resp B/P B/P Pulse O2 O2 Flow FiO2 Mean Ox Delivery Rate 03/07 1427 98.5 89 18 110/60 97 Room Air 03/07 0827 118/80 03/07 0627 97.4 72 18 118/80 96 Room Air 03/06 2236 98.0 92 18 128/84 96 Room Air Intake & Output 03/07 1600 03/07 0800 03/07 0000 Intake Total 400 200 200 Output Total Balance 400 200 200 Intake, Oral 400 200 200 Patient 227 lb Weight Physical Exam General Appearance: Alert, Oriented X3, Cooperative, overweight Cardiovascular: Regular Rate, Normal S1, Normal S2 Lungs: Clear to Auscultation, Normal Air Movement Abdomen: Normal Bowel Sounds, Soft, No Tenderness Extremities: 2+ radial pulses Current Medications: Current Medications Sig/Shalini Start time Last Medication Dose Route Stop Time Status Admin Aspirin 81 MG DAILY 03/06 1000 AC 03/07 PO 0827 Enoxaparin Sodium 40 MG DAILY 03/06 1000 AC 03/07 SC 0941 Hydrochlorothiazide 12.5 MG DAILY 03/06 1000 AC 03/07 PO 1020 Insulin Aspart 0 AC & AT BEDTIME 03/06 0845 AC 03/07 SC 1716 Insulin Detemir 15 UNITS BID 03/06 1000 AC 03/07 SC 0923 Losartan Potassium 100 MG DAILY 03/06 1000 AC 03/07 PO 0827 Metformin HCl 1,000 MG 0800,1700 03/06 0845 AC 03/07 PO 1717 Potassium Chloride 40 MEQ BID 03/06 1515 DC 03/06 PO 03/06 2201 2137 Last 24 Hrs of Lab/Preston Results Last 24 Hrs of Labs/Mics: Laboratory Tests 03/07/18 0753: Anion Gap 10, Estimated GFR > 60, BUN/Creatinine Ratio 24.0 Assessment/Plan Assessment: Ms. Lawton is a 52 yo f with a PMH significant for hypertension and borderline DM SIB PCP-Dr. Roe for a glucose lab results of 700. Problem list: #HHS secondary to new onset diabetes Admission glucose 620 with an anion gap of 17. Quickly resolved after 5 units insulin, IVF, 10 meQ potassium Hemoglobin A1c 10.5 Normal TSH/T4 Lipid panel: Triglycerides 275, cholesterol 154, LDL 66, HDL 33 -We'll be discharged with extended release metformin twice a day -We'll follow up with Dr. Canales outpatient tomorrow for insulin -Follow-up: proinsulin, C-peptide levels, OLIVIA antibody -follow-up nutrition outpatient -Monitor electrolytes, replinish if needed Diet: Diabetic DVT ppx: Enoxaparin Code: Full Problem List: 1. Diabetes Pain Ratin Pain Location: none Pain Goal: Pain 4 or less Pain Plan: pain pathway Tomorrow's Labs & Rationales: none
--- NOTE | 2018-03-07 11:12 | Patient Discharge Instructions ---
Discharge Instructions General Discharge Information Special Instructions: Please follow up with your pcp in 1 week. Please follow up with Dr. Parker [email or web address] @ [address] [place] [address], [place] [id number] Please follow up with your nutrionist in 1-2 weeks. Acute Coronary Syndrome Inclusion Criteria At DC or during hospital stay patient has or had the following: ACS DIAGNOSIS No Discharge Core Measures Meds if any: Prescribed or Continued at Discharge Meds if any: NOT Prescribed or Continued at Discharge Congestive Heart Failure Inclusion Criteria At DC or during hospital stay patient has or had the following: CHF DIAGNOSIS No Discharge Core Measures Meds if any: Prescribed or Continued at Discharge Meds if any: NOT Prescribed or Continued at Discharge Cerebrovascular accident Inclusion Criteria At DC or during hospital stay patient has or had the following: CVA/TIA Diagnosis No Discharge Core Measures Meds if any: Prescribed or Continued at Discharge Meds if any: NOT Prescribed or Continued at Discharge Venous thromboembolism Inclusion Criteria VTE Diagnosis No VTE Type NONE VTE Confirmed by (Test) NONE Discharge Core Measures - Per Current guidelines, there needs to be overlap - treatment for the first 5 days of Warfarin therapy. - If discharged on Warfarin prior to 5 days of - overlap therapy, the patient will need to be - assessed for post discharge needs including - *Post discharge parental anticoagulation - *Warfarin and/or parental anticoagulation education - *Follow up date to check INR post discharge At least 5 days overlap therapy as Inpatient No Meds if any: Prescribed or Continued at Discharge Note: Overlap Therapy is Warfarin and Anticoagulant Meds if any: NOT Prescribed or Continued at Discharge
[2018-03-07] MEDS ORDERED: METFORMIN HCL500 M2 PO ×3 (11:16→14:25)
[2018-03-07] MEDS ORDERED: GLUCOSE TEST S1 EACH TOP-INJ ×2 (11:40→14:25)
[2018-03-07] MEDS ORDERED: ACCU-CHEK1 EACH TOP-INJ ×2 (11:40→14:25)
[2018-03-07] MEDS ORDERED: ONETOUCH ULTRA1 EAC2 TOP-INJ ×2 (11:40→14:25)
--- NOTE | 2018-03-07 11:47 | PN- Att Addend ---
Attending Addendum Attending Brief Note Patient seen and examined, offers no complaints. She is just afraid of needles. Patient has been seen by endocrinology this morning. Blood sugars are better controlled this morning. Vital Signs Date Time Temp Pulse Resp B/P B/P Pulse O2 O2 Flow FiO2 Mean Ox Delivery Rate 03/07 0827 118/80 03/07 0627 97.4 72 18 118/80 96 Room Air 03/06 2236 98.0 92 18 128/84 96 Room Air 03/06 1420 98.4 91 18 114/70 95 Room Air on exam; aox3, nad. cv; s1,s2, rrr resp; clear abd; soft, nt, bs+ ext; no edema Laboratory Tests 03/07 0753 Chemistry Sodium (137 - 145 mmol/L) 134 L Potassium (3.5 - 5.1 mmol/L) 3.9 Chloride (98 - 107 mmol/L) 98 Carbon Dioxide (22 - 30 mmol/L) 26 Anion Gap (5 - 16) 10 BUN (7 - 17 mg/dL) 12 Creatinine (0.5 - 1.0 mg/dL) 0.5 Estimated GFR (>60 ml/min) > 60 BUN/Creatinine Ratio (7 - 25 %) 24.0 A/P; 52-year-old female with past medical history significant for hypertension, admitted with hyperglycemia and positive ketones and new onset diabetes. Blood sugars are better controlled. Patient currently on Levemir and metformin. As discussed with endocrinology, patient to be discharged on extended-release metformin. Patient will follow-up with Dr. sweeney in her office at 10:00 in the morning tomorrow 03/08/2018. Patient will get teaching above insulin pen and Dr. sweeney's office. Nutrition consult has been obtained. Patient will be getting prescriptions for glucometer as well as lancets/strips to check her blood sugars. She is otherwise medically stable for discharge.
[2018-03-07 14:27] VITALS: BP 110/60
--- NOTE | 2018-03-08 16:59 | Discharge Summary ---
Visit Information Visit Dates Admission Date: 03/05/18 Discharge Date: 03/07/18 Hospital Course Course Attending Physician: Vernell Cruz MD Primary Care Physician: Bhupinder CASTANON,Clayton Miller Hospital Course: A: Ms. Lawton is a 52 yo f with a PMH significant for hypertension and borderline DM SIB PCP-Dr. Roe for a glucose lab results of 700. Problem list: #HHS secondary to new onset diabetes Her initial admission glucose was 620 with an anion gap of 17. She was initially treated with 5 units of insulin, IVF, and 10 meQ potassium which improved her blood sugars and closed her anion gap. Her hemoglobin A1c was 10.5 and lipid panel revealed elevated triglycerides and low HDL. TSH/T4 were WNL. Endocrinology was consulted who managed her sugars with levemir and started her on metformin. The patient began having loose stools after starting metformin and was informed that this was a common adverse effect. She was also seen by nutrition. The patient was discharged with extended release metformin 1000mg twice a day. She was advised to follow up with Dr. Canales tomorrow 03/08/18 @ 10AM for insulin and diabetic teaching. She was advised to follow up with nutrition. Her proinsulin, C-peptide levels, OLIVIA antibody were pending after discharge. #Hx of HTN She was given HCTZ and Losartan during admission. She was discharged with her home Benicar. Allergies: Coded Allergies: No Known Allergies (03/05/18) Disposition Summary Disposition Principal Diagnosis: HHS Additional Diagnosis: New onset diabetes Discharge Disposition: home health services Discharge Instructions General Discharge Information Code Status: Full Code Patient's Diet: Diabetic Patient's Activity: As tolerated Follow-Up Instructions/Appts: Please follow up with your pcp in 1 week. Please follow up with Dr. Canales tomorrow (03/08/18) @ 10am [address] [place] [address] Please follow up with your nutrionist in 1-2 weeks. Medications at Discharge Discharge Medications: Continue taking these medications: Aspirin (Aspirin*) 81 MG TAB.CHEW 81 Milligram ORAL DAILY Comments: Last Taken: 03/07/18 Time: 8:30 am Cyanocobalamin (Vitamin B-12) (Vitamin B12) 2,500 MCG TAB.CHEW Unknown Dose ORAL DAILY Comments: NOT GIVEN IN HOSPITAL Cholecalciferol (Vitamin D3) (Vitamin D) 1,000 UNIT TABLET Unknown Dose ORAL DAILY Comments: NOT GIVEN IN HOSPITAL Olmesartan/Hydrochlorothiazide (Benicar Hct 40-12.5 MG Tablet) 40 MG-12.5 MG TABLET 1 Tablet ORAL DAILY Qty = 90 Comments: HYDROCHLOROTHIAZIDE GIVEN 03/07/18 AT 11:00am Start taking the following new medications: Blood-Glucose Meter (OleOletouch Ultra2) 1 EACH KIT 1 Unit TOPICAL/INJECTION BEFORE MEALS AND AT BEDTIME Qty = 1 No Refills Instructions: . Metformin HCl (Metformin HCl ER) 500 MG TAB.ER.24 2 Tablet ORAL TWICE DAILY Qty = 120 No Refills Instructions: Please take with breakfast and dinner Comments: Last Taken: 03/07/18 Time: 8:30 am Blood Sugar Diagnostic (Glucose Test Strip) 1 EACH STRIP 1 STRIP TOPICAL/INJECTION BEFORE MEALS AND AT BEDTIME Qty = 1 No Refills Lancets (Accu-Chek) 1 EACH EACH 1 Unit TOPICAL/INJECTION BEFORE MEALS AND AT BEDTIME Qty = 1 No Refills Comments: . Copies To: Bhupinder CASTANON,Clayton Miller
== END 2018-03-07 20:00 | disposition home health service (06) | DRG 638 ==
LOC: ERH 18:26 → 2NA 20:13 → ERHI 20:13 → ENRESERV 21:32 → 2NA 22:30
PROVIDERS: Physician Assistant Medical; Student in an Organized Health Care Education/Training Program
DX: E11.65 Type 2 diabetes mellitus with hyperglycemia (principal); E87.1 Hypo-osmolality and hyponatremia; I10 Essential (primary) hypertension; R63.4 Abnormal weight loss; Z68.37 Body mass index [BMI] 37.0-37.9, adult; Z90.710 Acquired absence of both cervix and uterus; Z79.82 Long term (current) use of aspirin; D72.829 Elevated white blood cell count, unspecified; Z83.3 Family history of diabetes mellitus
CPT/HCPCS: 2NAP; 83519; 84206; 36415; 36592; 81003; 82436; 93005; 93010; 96361; 96365; 96375; 99291; J1650; J1815; J2405; J3490